=== PATIENT | male | born 1955 | race Caucasian/White ===

== ENCOUNTER 2017-06-20 07:16 | Day surgery (SDC) | payer BC, OTHER ==
[~2017-06-20 07:16] MED LIST: Lactated Ringers 1,000 ML IV SCH; Sodium Chloride 0.9% 5 ML Syringe FLUSH PRN
[2017-06-20] MEDS ORDERED: ceFAZolin 1 GM Vial ONE ×3 (08:10→08:45)
[2017-06-20] MEDS ORDERED: Lidocaine 1% with EPINEPHrine 1:100,000 20 ML MDV ONE (08:11)
[2017-06-20] MEDS ORDERED: fentaNYL 250 MCG/5 ML SDV ONE (08:13)
[2017-06-20] MEDS ORDERED: Midazolam 1 MG/ML 2 ML SDV ONE (08:13)
[2017-06-20] MEDS ORDERED: Propofol 200 MG/20 ML SDV ONE (08:13)
[2017-06-20] MEDS ORDERED: Lactated Ringers 1,000 ML ONE (08:13)
[2017-06-20] MEDS ORDERED: Dexamethasone 4 MG/ML SDV ONE (08:13)
[2017-06-20] MEDS ORDERED: Neostigmine Methylsulfate 10 MG/10 ML MDV IV ONE (08:19)
[2017-06-20] MEDS ORDERED: Dexamethasone 4 MG/ML SDV IV ONE (08:19)
[2017-06-20] MEDS ORDERED: Ondansetron 4 MG/2 ML SDV IV ONE (08:19)
[2017-06-20] MEDS ORDERED: fentaNYL 250 MCG/5 ML SDV IV ONE (08:19)
[2017-06-20] MEDS ORDERED: Propofol 200 MG/20 ML SDV IV ONE (08:19)
[2017-06-20] MEDS ORDERED: Midazolam 1 MG/ML 2 ML SDV IV ONE (08:19)
[2017-06-20] MEDS ORDERED: Succinylcholine 200 MG/10 ML MDV IV ONE (08:19)
[2017-06-20] MEDS ORDERED: Rocuronium 50 MG/5 ML Vial IV ONE (08:19)
[2017-06-20] MEDS ORDERED: ceFAZolin 1 GM Vial IV ONE (08:19)
[2017-06-20] MEDS ORDERED: Glycopyrrolate 0.2 MG/ML 5 ML MDV IV ONE (08:19)
[2017-06-20] MEDS ORDERED: Lidocaine 1% with EPINEPHrine 1:100,000 20 ML MDV INFILT ONE (08:45)
[2017-06-20] MEDS ORDERED: Sodium Chloride 0.9% 20 ML SDV ONE (08:45)
[2017-06-20] MEDS ORDERED: Albuterol/Ipratropium 3.0-0.5 MG/3 ML Neb Soln NEB ONE (09:15)
[2017-06-20] MEDS ORDERED: Ipratropium 0.02% 0.5 MG/2.5 ML Neb Soln ONE (09:16)
[2017-06-20] MEDS ORDERED: Albuterol 0.083% 2.5 MG/3 ML Neb Soln ONE (09:16)
--- NOTE | 2017-06-20 09:26 | PCM.PRNOTE ---
- Free Text/Narrative Note: INFORMED CONSENT: The patient is here today for elective left inguinal herniorrhaphy. The operative procedure, anesthesia and risks of both are completely explained to the patient. These include infection, pain, bleeding, recurrence, numbness and other unknown complications. The patient wished to proceed. The patient was kept in the supine position and the left inguinal area was thoroughly prepped and draped in the usual fashion. An incision was made over the left inguinal area, parallel to the inguinal ligament. The skin incision was deepened through the subcutaneous tissue, deep fascia and the external oblique was opened along the line of the skin incision. The cord structures were identified and kept out of harms way. We also identified the ilioinguinal nerve and the inguinal branch of the genitofemoral nerve. These two structures were kept out of harms way as well. We then dissected the medial portion of the cord and there was a fairly significant hernial sac which was opened. The contents were mostly omental tissue that was pushed back into the abdominal cavity. A high ligation of the sac was performed with 0 silk sutures. The excess sac was excised and sent away for histology. Palpation of the medial portion of the floor indicated a defect. A Marlex mesh was then cut down to size and placed to fortify the defect of the floor and the direct portion of the hernia. The mesh was attached to the conjoined tendon superiorly, Miki's ligament medially and the reflected portion of the inguinal ligament inferiorly. The wound was irrigated, small bleeders were cauterized and the external oblique was closed over the cord structures using running 0 silk sutures. The subcutaneous tissue was closed with 0 Polysorb suture and the skin was closed using 4.0 Polysorb suture. A Sterile pressure dressing was applied, the patient tolerated the procedure well and there were no operative complications. Blood loss was negligible. Sponge, needle and instrument count was correct. The patient was transferred to the recovery room in excellent condition.
[2017-06-20] MEDS ORDERED: Ketorolac 30 MG/ML SDV IVPUSH ONE (13:19)
== END 2017-06-20 14:35 | disposition home or self-care (01) ==
LOC: KA.SDS 07:16
PROVIDERS: ATTEND Family Medicine
DX: K40.90 Unilateral inguinal hernia, without obstruction or gangrene, not specified as recurrent (principal); F17.200 Nicotine dependence, unspecified, uncomplicated; Z88.0 Allergy status to penicillin
CPT/HCPCS: C1781; J0330; J0690; J1100; J1885; J2250; J2405; J2704; J2710; J3010; J3490; J7120

== ENCOUNTER 2019-11-24 15:58 | Emergency (ER) | payer BC ==
[2019-11-24] MEDS ORDERED: Sodium Chloride 0.9% 10 ML Syringe FLUSH PRN (16:11)
--- NOTE | 2019-11-24 16:12 | EDM.PDOC ---
ED HPI GENERAL MEDICAL PROBLEM - General Chief Complaint: Abdominal Pain Stated Complaint: MID UPPER ABDOMINAL PAIN Time Seen by Provider: 11/24/19 16:12 Source of Information: Reports: Patient - History of Present Illness INITIAL COMMENTS - FREE TEXT/NARRATIVE: 64 YO WM PRESENTS TO ER COMPLAINING OF 3 DAYS OF EPIGASTRIC DISCOMFORT. 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 PT REPORTS HE BECAME OVERHEATED AND WAS DIAPHORETIC WITH NAUSEA BUT SYMPTOMS LASTED FOR ABOUT 10 MINUTES AND RESOLVED. PT REPORTS IT FEELS LIKE INDIGESTION. PT REPORTS A FEW MORE EPISODES SINCE SUNDAY WITH THE LAST EPISODE BEING TODAY AND LASTING LONGER WITH ASSOCIATED NAUSEA, DIAPHORESIS AND MILD SHORTNESS OF BREATH. PT DENIES PMH AND DENIES CURRENT MEDICATION USE. PT DENIES FEVER/CHILLS, NO BACK PAIN OR DIZZINESS. Onset Date: 11/21/19 Duration: Day(s): (3) Location: Reports: Chest, Abdomen Quality: Reports: Dull Severity: Mild Improves with: Reports: None Worsens with: Reports: None Associated Symptoms: Reports: Chest Pain, Nausea/Vomiting, Shortness of Breath - Related Data Allergies Allergy/AdvReac Type Severity Reaction Status Date / Time Penicillins Allergy Rash Verified 11/24/19 16:25 Home Meds: Home Meds Acetaminophen 500 mg PO Q4H PRN 06/19/17 [History] Past Medical History Gastrointestinal History: Reports: Other (See Below) Other Gastrointestinal History: Left inguinal hernia, right inguinal hernia repaired in 2010 Musculoskeletal History: Reports: Back Pain, Chronic, Fracture, Other (See Below) Other Musculoskeletal History: collar bone fx Psychiatric History: Reports: Addiction, Other (See Below) Other Psychiatric History: alcohol addiction - Infectious Disease History Infectious Disease History: Reports: Chicken Pox ED ROS GENERAL - Review of Systems Review Of Systems: See Below Constitutional: Reports: No Symptoms HEENT: Reports: No Symptoms Respiratory: Reports: No Symptoms Cardiovascular: Reports: Chest Pain Endocrine: Reports: No Symptoms GI/Abdominal: Reports: Abdominal Pain, Nausea : Reports: No Symptoms Musculoskeletal: Reports: No Symptoms Skin: Reports: No Symptoms Neurological: Reports: No Symptoms Psychiatric: Reports: No Symptoms Hematologic/Lymphatic: Reports: No Symptoms Immunologic: Reports: No Symptoms ED EXAM, GENERAL - Physical Exam Exam: See Below Exam Limited By: No Limitations General Appearance: Alert, WD/WN, No Apparent Distress Head: Atraumatic Neck: Normal Inspection, Supple, Non-Tender, Full Range of Motion Respiratory/Chest: No Respiratory Distress, Lungs Clear, Normal Breath Sounds, No Accessory Muscle Use, Chest Non-Tender Cardiovascular: Normal Peripheral Pulses, Regular Rate, Rhythm, No Edema, No Gallop, No JVD, No Murmur, No Rub GI/Abdominal: Normal Bowel Sounds, Soft, No Organomegaly, No Distention, No Abnormal Bruit, No Mass, Tender Back Exam: Normal Inspection, Full Range of Motion, NT Extremities: Normal Inspection, Normal Range of Motion, Non-Tender, Normal Capillary Refill, No Pedal Edema Neurological: Alert, Oriented, CN II-XII Intact, Normal Cognition, Normal Gait, Normal Reflexes, No Motor/Sensory Deficits Psychiatric: Normal Affect, Normal Mood Skin Exam: Warm, Dry, Intact, Normal Color, No Rash Lymphatic: No Adenopathy EKG INTERPRETATION EKG Date: 11/24/19 Time: 16:10 Rhythm: NSR Rate (Beats/Min): 70 Cassatt: Normal P-Wave: Present QRS: Normal ST-T: Normal QT: Normal Comparison: NA - No Prior EKG Course - Vital Signs Last Recorded V/S: Last Vital Signs Temp 36.2 C 11/24/19 16:05 Pulse 76 11/24/19 17:45 Resp 23 H 11/24/19 17:45 BP 123/68 11/24/19 17:45 Pulse Ox 97 11/24/19 17:45 - Orders/Labs/Meds Orders: Active Orders 24 hr Category Date Time Status EKG Documentation Completion [RC] ASDIRECTED Care 11/24/19 16:11 Active Peripheral IV Care [RC] . DIRECTED Care 11/24/19 16:11 Active Sodium Chloride 0.9% [Saline Flush] Med 11/24/19 16:11 Active 10 ml FLUSH Q8HR PRN Peripheral IV Insertion Adult [OM.PC] Routine Oth 11/24/19 16:11 Ordered EKG 12 Lead [EK] Stat Ther 11/24/19 16:11 Ordered Medication Orders Sodium Chloride (Saline Flush) 10 ml FLUSH Q8HR PRN PRN Reason: keep vein open Labs: Laboratory Tests 11/24/19 11/24/19 Range/Units 16:15 16:15 WBC 15.50 H (5.00-10.00) 10^3/uL RBC 4.86 (4.50-6.00) 10^6/uL Hgb 14.2 (13.0-17.0) g/dL Hct 41.1 (40.0-52.0) % MCV 84.6 (82.0-92.0) fL MCH 29.2 (27.0-31.0) pg MCHC 34.5 (32.0-36.0) g/dL RDW 13.9 (11.5-14.5) % Plt Count 272 (150-400) 10^3/uL MPV 8.4 (7.4-10.4) fL Immature Gran % (Auto) 0.2 (0.0-5.0) % Neut % (Auto) 77.3 H (50.0-70.0) % Lymph % (Auto) 15.4 L (20.0-40.0) % Hinds % (Auto) 6.3 (2.0-8.0) % Eos % (Auto) 0.6 L (1.0-3.0) % Baso % (Auto) 0.2 (0.0-1.0) % Neut # (Auto) 11.98 H (2.50-7.00) 10^3/uL Lymph # (Auto) 2.39 (1.00-4.00) 10^3/uL Hinds # (Auto) 0.98 H (0.10-0.80) 10^3/uL Eos # (Auto) 0.09 L (0.10-0.30) 10^3/uL Baso # (Auto) 0.03 (0.00-0.10) 10^3/uL Immature Gran # (Auto) 0.03 (0.00-0.50) 10^3/uL Sodium 131 L (136-145) mmol/L Potassium 3.3 (3.3-5.3) mmol/L Chloride 94 L (98-115) mmol/L Carbon Dioxide 23.6 (21.0-32.0) mmol/L Anion Gap 16.7 H (5-15) mmol/L BUN 15 (6-25) mg/dL Creatinine 0.68 (0.51-1.17) mg/dL Est Cr Clr Drug Dosing 110.57 mL/min Estimated GFR (MDRD) > 60 mL/min Glucose 102 H (75 - 99) mg/dL Calcium 8.7 (8.7-10.3) mg/dL Total Bilirubin 0.4 (0.2-1.0) mg/dL AST 15 (15-37) U/L ALT 20 (12-78) U/L Alkaline Phosphatase 107 (46-116) IU/L Creatine Kinase 55 (26-276) U/L CK-MB (CK-2) 1.70 (0.00-4.30) ng/mL Troponin I 0.04 (0.00-0.070) ng/mL Total Protein 6.9 (6.4-8.2) g/dL Albumin 3.54 (3.00-4.80) g/dL Lipase 113 (73-393) U/L Meds: Medications Generic Name Dose Route Start Last Admin Trade Name Freq PRN Reason Stop Dose Admin Sodium Chloride 10 ml 11/24/19 16:11 Saline Flush FLUSH Q8HR PRN keep vein open Discontinued Medications Generic Name Dose Route Start Last Admin Trade Name Freq PRN Reason Stop Dose Admin Sodium Chloride 1,000 mls @ 999 mls/hr 11/24/19 16:19 11/24/19 16:33 Normal Saline IV 11/24/19 17:19 999 mls/hr .BOLUS ONE Administration - Radiology Interpretation Free Text/Narrative:: CXR-NAD - Re-Assessments/Exams Free Text/Narrative Re-Assessment/Exam: 11/24/19 17:15 PT DENIES ABDOMINAL PAIN/CHEST PAIN CURRENTLY. PT DOES NOT WANT TO STAY IN HOSPITAL AND WANTS TO BE DISCHARGED FOR OUTPATIENT EVALUATION AND TREATMENT. PT UNDERSTANDS RISK OF DETENTION DISABILITY OR POSSIBILITIES WITHOUT A MORE DEFINITIVE DIAGNOSIS. Departure - Departure Time of Disposition: 17:19 Disposition: Against Medical Advice 07 Condition: Fair Clinical Impression: Epigastric pain, Nonspecific chest pain, Tobacco use - Discharge Information Instructions: Abdominal Pain, Adult, Nonspecific Chest Pain, Adult, Steps to Quit Smoking Referrals: Maria Alejandra Parada PA-C [Primary Care Provider] - Forms: ED Department Discharge, Refusal of Care AMA Additional Instructions: 1. AMA- CONCERNS FOR CARDIAC ISCHEMIA. RECOMMENDED OBSERVATION IN THE HOSPITAL FOR FURTHER EVALUATION AND TREATMENT 2. FOLLOW UP WITH MARIA ALEJANDRA PARADA IN AM SCHEDULED- RECOMMENDING CARDIAC STRESS TEST AND ECHOCARDIOGRAM 3. RETURN TO ER FOR RETURNING OR WORSENING SYMPTOMS Sepsis Event Note (ED) - Focused Exam Vital Signs: Vital Signs Temp Pulse Resp BP Pulse Ox 11/24/19 17:45 76 23 H 123/68 97 11/24/19 17:30 63 18 117/92 H 98 11/24/19 17:00 64 18 112/64 97 11/24/19 16:45 62 16 115/59 L 96 11/24/19 16:30 64 20 109/59 L 98 11/24/19 16:15 77 15 90/60 94 L 11/24/19 16:05 36.2 C 72 20 118/71 93 L - My Orders Last 24 Hours: My Active Orders 11/24/19 16:11 EKG Documentation Completion [RC] ASDIRECTED Peripheral IV Care [RC] . DIRECTED Sodium Chloride 0.9% [Saline Flush] 10 ml FLUSH Q8HR PRN Peripheral IV Insertion Adult [OM.PC] Routine EKG 12 Lead [EK] Stat - Assessment/Plan Last 24 Hours: My Active Orders 11/24/19 16:11 EKG Documentation Completion [RC] ASDIRECTED Peripheral IV Care [RC] . DIRECTED Sodium Chloride 0.9% [Saline Flush] 10 ml FLUSH Q8HR PRN Peripheral IV Insertion Adult [OM.PC] Routine EKG 12 Lead [EK] Stat Assessment:: 1. EPIGASTRIC ABDOMINAL PAIN 2. NONSPECIFIC CHEST PAIN Plan: 1. AMA- CONCERNS FOR CARDIAC ISCHEMIA. RECOMMENDED OBSERVATION IN THE HOSPITAL FOR FURTHER EVALUATION AND TREATMENT 2. FOLLOW UP WITH MARIA ALEJANDRA PARADA IN AM SCHEDULED- RECOMMENDING CARDIAC STRESS TEST AND ECHOCARDIOGRAM 3. RETURN TO ER FOR RETURNING OR WORSENING SYMPTOMS
[2019-11-24] MEDS: Sodium Chloride 0.9% 1,000 ML IV ONE (16:33)
[2019-11-24 16:48] LABS: ANION GAP 16.7 mmol/L (5-15); CHLORIDE,CL 94 mmol/L (98-115); SODIUM,NA 131 mmol/L (136-145)
--- NOTE | 2019-11-24 16:48 | CR ---
[id number] RAD/RAD Chest PA And Lateral EXAM: RAD Chest PA And Lateral INDICATION: PAIN. COMPARISON: None. DISCUSSION: Cardiomediastinal silhouette is normal in size and contour. Bilateral symmetric lung hyperinflation. Findings nonspecific, commonly seen as sequela of chronic obstructive pulmonary disease. No infiltrate, effusion, pneumothorax, or edema. Impression: As above. Bladimir Paulino MD 11/24/19 [id number] Thank you for allowing us to participate in the care of your patient.
== END 2019-11-24 17:45 | disposition left against medical advice (07) ==
LOC: KA.ED 15:58
DX: R10.13 Epigastric pain (principal); R07.9 Chest pain, unspecified; Z72.0 Tobacco use; Z88.0 Allergy status to penicillin
CPT/HCPCS: 71046; 80053; 82550; 82553; 83690; 84484; 85025; 93005; 96360; 99284; 99285-25; J7030

== ENCOUNTER 2024-02-02 06:14 | Inpatient (IN) | payer MEDICARE ==
[2024-02-02 06:37] LABS: BASOPHILS ABSOLUTE AUTO 0.03 10^3/uL (0.00-0.10); BASOPHILS PERCENT AUTO 0.2 % (0.0-1.0); EOSINOPHILS PERCENT AUTO 0.5 % (1.0-3.0); HEMATOCRIT 44.4 % (40.0-52.0); IMMATURE GRAN ABSOLUTE AUTO 0.03 10^3/uL (0.00-0.50); IMMATURE GRAN PERCENT AUTO 0.2 % (0.0-5.0); LYMPHOCYTES ABSOLUTE AUTO 3.47 10^3/uL (1.00-4.00); LYMPHOCYTES PERCENT AUTO 17.6 % (20.0-40.0); MEAN CORPUSCULAR HEMOGLOBIN 29.7 pg (27.0-31.0); MEAN CORPUSCULAR HGB CONC 33.8 g/dL (32.0-36.0); MEAN CORPUSCULAR VOLUME 87.9 fL (82.0-92.0); MEAN PLATELET VOLUME 8.7 fL (7.4-10.4); MONOCYTES ABSOLUTE AUTO 1.12 10^3/uL (0.10-0.80); MONOCYTES PERCENT AUTO 5.7 % (2.0-8.0); NEUTROPHILS ABSOLUTE AUTO 14.95 10^3/uL (2.50-7.00); NEUTROPHILS PERCENT AUTO 75.8 % (50.0-70.0); PLATELET COUNT,PLT 264 10^3/uL (150-400); RED BLOOD CELL COUNT 5.05 10^6/uL (4.50-6.00); RED CELL DISTRIBUTION WIDTH 14.5 % (11.5-14.5)
[2024-02-02] MEDS: Albuterol/Ipratropium 3.0-0.5 MG/3 ML Neb Soln NEB ONE ×2 (06:39→07:12)
[2024-02-02] MEDS: methylPREDNISolone Sodium Succinate 125 MG/2 ML SDV IVPUSH ONE (06:39)
[2024-02-02] MEDS: Sodium Chloride 0.9% 10 ML Syringe FLUSH PRN (06:45)
[2024-02-02] MEDS: Sodium Chloride 0.9% 1,000 ML IV ONE (06:46)
[2024-02-02 06:51] LABS: ALANINE AMINOTRANSFERASE,ALT 21 U/L (14-63); ALBUMIN 3.25 g/dL (3.40-5.00); ALKALINE PHOSPHATASE 119 U/L (46-116); ANION GAP 12.3 mmol/L (5-15); ASPARTATE AMNIOTRANSFERASE,AST 15 U/L (15-37); BILIRUBIN TOTAL 0.8 mg/dL (0.2-1.0); BLOOD UREA NITROGEN,BUN 9 mg/dL (7-18); CALCIUM 8.9 mg/dL (8.7-10.3); CARBON DIOXIDE,CO2 30.3 mmol/L (21.0-32.0); CHLORIDE,CL 96 mmol/L (98-107); CREATININE 0.64 mg/dL (0.51-1.17); EST CRCL DRUG DOSING (CG) 106.35 mL/min; GLUCOSE RANDOM 93 mg/dL (70-140); POTASSIUM,K 3.6 mmol/L (3.5-5.1); PROTEIN TOTAL,TP 6.8 g/dL (6.4-8.2); SODIUM,NA 135 mmol/L (136-145)
[2024-02-02 06:54] LABS: ESTIMATED GFR 104 mL/min (>=60)
[2024-02-02 07:08] LABS: LACTIC ACID 0.6 mmol/L (0.4-2.0)
[2024-02-02] MEDS: Pantoprazole 40 MG Tab.CR PO ONE (07:45)
[2024-02-02] MEDS ORDERED: Albuterol/Ipratropium 3.0-0.5 MG/3 ML Neb Soln NEB PRN (08:46)
[2024-02-02] MEDS ORDERED: Ondansetron 4 MG/2 ML SDV IV PRN (08:46)
[2024-02-02] MEDS ORDERED: Acetaminophen 325 MG Tab PO PRN (08:46)
[2024-02-02] MEDS ORDERED: Melatonin 3 MG Tab PO PRN (08:46)
[2024-02-02] MEDS: Sodium Chloride 0.9% 100 ML IV SCH (09:38)
[2024-02-02] MEDS: Azithromycin 500 MG in Sodium Chloride 0.9% 250 ML IV SCH (09:38)
[2024-02-02] MEDS: Nicotine 21 MG/24 Hr Patch TRDERM SCH (10:08)
[2024-02-02] MEDS: Albuterol/Ipratropium 3.0-0.5 MG/3 ML Neb Soln NEB SCH (11:04)
[2024-02-02] MEDS: methylPREDNISolone Sodium Succinate 40 MG/1 ML SDV IVPUSH SCH (14:56)
[2024-02-02] MEDS: INDOMETHACIN 25 MG PO SCH (17:43)
[2024-02-03] MEDS: Pantoprazole 40 MG Tab.CR PO SCH (05:33)
[2024-02-03 07:26] LABS: BASOPHILS ABSOLUTE AUTO 0.02 10^3/uL (0.00-0.10); BASOPHILS PERCENT AUTO 0.1 % (0.0-1.0); HEMATOCRIT 41.6 % (40.0-52.0); HEMOGLOBIN 13.9 g/dL (13.0-17.0); IMMATURE GRAN ABSOLUTE AUTO 0.08 10^3/uL (0.00-0.50); IMMATURE GRAN PERCENT AUTO 0.3 % (0.0-5.0); LYMPHOCYTES ABSOLUTE AUTO 0.92 10^3/uL (1.00-4.00); LYMPHOCYTES PERCENT AUTO 3.8 % (20.0-40.0); MEAN CORPUSCULAR HEMOGLOBIN 29.5 pg (27.0-31.0); MEAN CORPUSCULAR HGB CONC 33.4 g/dL (32.0-36.0); MEAN CORPUSCULAR VOLUME 88.3 fL (82.0-92.0); MEAN PLATELET VOLUME 8.7 fL (7.4-10.4); MONOCYTES ABSOLUTE AUTO 1.15 10^3/uL (0.10-0.80); MONOCYTES PERCENT AUTO 4.8 % (2.0-8.0); NEUTROPHILS ABSOLUTE AUTO 21.89 10^3/uL (2.50-7.00); PLATELET COUNT,PLT 256 10^3/uL (150-400); RED BLOOD CELL COUNT 4.71 10^6/uL (4.50-6.00); RED CELL DISTRIBUTION WIDTH 14.5 % (11.5-14.5); WHITE BLOOD CELL COUNT,WBC 24.06 10^3/uL (5.00-10.00)
[2024-02-03 07:43] LABS: ALBUMIN 2.89 g/dL (3.40-5.00); ANION GAP 13.6 mmol/L (5-15); BILIRUBIN TOTAL 0.4 mg/dL (0.2-1.0); CALCIUM 8.9 mg/dL (8.7-10.3); CARBON DIOXIDE,CO2 28.5 mmol/L (21.0-32.0); CREATININE 0.57 mg/dL (0.51-1.17); EST CRCL DRUG DOSING (CG) 115.05 mL/min; POTASSIUM,K 4.1 mmol/L (3.5-5.1); PROTEIN TOTAL,TP 6.3 g/dL (6.4-8.2)
[2024-02-03] MEDS: Loratadine 10 MG Tab PO SCH (11:16)
[2024-02-03] MEDS: Fluticasone NASAL Spray 16 GM Bottle NASBOTH SCH (11:16)
[2024-02-03] MEDS: guaiFENesin 600 MG Tab.ER PO SCH (11:16)
[2024-02-03] MEDS: Enoxaparin 40 MG/0.4 ML Syringe SUBCUT SCH (17:49)
[2024-02-04 07:47] LABS: ALBUMIN 2.82 g/dL (3.40-5.00); ANION GAP 9.5 mmol/L (5-15); BILIRUBIN TOTAL 0.4 mg/dL (0.2-1.0); CALCIUM 8.7 mg/dL (8.7-10.3); CARBON DIOXIDE,CO2 32.6 mmol/L (21.0-32.0); CREATININE 0.72 mg/dL (0.51-1.17); EST CRCL DRUG DOSING (CG) 91.08 mL/min; POTASSIUM,K 4.1 mmol/L (3.5-5.1); PROTEIN TOTAL,TP 6.2 g/dL (6.4-8.2)
[2024-02-04 08:07] LABS: BASOPHILS ABSOLUTE AUTO 0.02 10^3/uL (0.00-0.10); BASOPHILS PERCENT AUTO 0.1 % (0.0-1.0); EOSINOPHILS ABSOLUTE AUTO 0.03 10^3/uL (0.10-0.30); EOSINOPHILS PERCENT AUTO 0.2 % (1.0-3.0); HEMATOCRIT 41.5 % (40.0-52.0); HEMOGLOBIN 13.8 g/dL (13.0-17.0); IMMATURE GRAN ABSOLUTE AUTO 0.05 10^3/uL (0.00-0.50); IMMATURE GRAN PERCENT AUTO 0.3 % (0.0-5.0); LYMPHOCYTES ABSOLUTE AUTO 2.62 10^3/uL (1.00-4.00); LYMPHOCYTES PERCENT AUTO 16.2 % (20.0-40.0); MEAN CORPUSCULAR HGB CONC 33.3 g/dL (32.0-36.0); MEAN CORPUSCULAR VOLUME 90.2 fL (82.0-92.0); MEAN PLATELET VOLUME 8.9 fL (7.4-10.4); MONOCYTES ABSOLUTE AUTO 0.94 10^3/uL (0.10-0.80); MONOCYTES PERCENT AUTO 5.8 % (2.0-8.0); NEUTROPHILS ABSOLUTE AUTO 12.55 10^3/uL (2.50-7.00); NEUTROPHILS PERCENT AUTO 77.4 % (50.0-70.0); PLATELET COUNT,PLT 258 10^3/uL (150-400); RED CELL DISTRIBUTION WIDTH 14.6 % (11.5-14.5); WHITE BLOOD CELL COUNT,WBC 16.21 10^3/uL (5.00-10.00)
[2024-02-04] MEDS: methylPREDNISolone Sodium Succinate 40 MG/1 ML SDV IVPUSH SCH (08:59)
== END 2024-02-04 14:01 | disposition home or self-care (01) | DRG 189 ==
LOC: KA.ED 06:14 → KA.MS 07:35
PROVIDERS: ADMIT Internal Medicine; ATTEND Internal Medicine
DX: J96.01 Acute respiratory failure with hypoxia (principal); R09.02 Hypoxemia; J44.1 Chronic obstructive pulmonary disease with (acute) exacerbation; D72.829 Elevated white blood cell count, unspecified; G89.29 Other chronic pain; M54.9 Dorsalgia, unspecified; F17.210 Nicotine dependence, cigarettes, uncomplicated; Z88.0 Allergy status to penicillin; Z88.8 Allergy status to other drugs, medicaments and biological substances; Z79.52 Long term (current) use of systemic steroids; Z79.899 Other long term (current) drug therapy
CPT/HCPCS: 36415; 71045; 80053; 83605; 84484; 85025; 93005; 93010; 94640; 96374; 99223-GT; 99232-GT; 99239-GT; 99284; 99285-25; A9270-GY; J0456; J1650; J2919; J3490; J7030; J7050; J7620-GY; Q3014

== ENCOUNTER 2025-01-17 21:09 | Observation (INO) | payer MEDICARE ==
[2025-01-17 21:56] LABS: BASOPHILS ABSOLUTE AUTO 0.04 10^3/uL (0.00-0.10); BASOPHILS PERCENT AUTO 0.3 % (0.0-1.0); EOSINOPHILS ABSOLUTE AUTO 0.44 10^3/uL (0.10-0.30); EOSINOPHILS PERCENT AUTO 3.6 % (1.0-3.0); IMMATURE GRAN ABSOLUTE AUTO 0.03 10^3/uL (0.00-0.04); IMMATURE GRAN PERCENT AUTO 0.2 % (0.0-0.4); LYMPHOCYTES ABSOLUTE AUTO 2.87 10^3/uL (1.00-4.00); LYMPHOCYTES PERCENT AUTO 23.2 % (20.0-40.0); MEAN PLATELET VOLUME 8.6 fL (7.4-10.4); MONOCYTES ABSOLUTE AUTO 0.74 10^3/uL (0.10-0.80); MONOCYTES PERCENT AUTO 6.0 % (2.0-8.0); NEUTROPHILS ABSOLUTE AUTO 8.23 10^3/uL (2.50-7.00); NEUTROPHILS PERCENT AUTO 66.7 % (50.0-70.0); PLATELET COUNT,PLT 242 10^3/uL (150-400); RED BLOOD CELL COUNT 4.10 10^6/uL (4.50-6.00); RED CELL DISTRIBUTION WIDTH 14.7 % (11.5-14.5); WHITE BLOOD CELL COUNT,WBC 12.35 10^3/uL (5.00-10.00)
[2025-01-17] MEDS: Sodium Chloride 0.9% 10 ML Syringe FLUSH PRN (22:00)
[2025-01-17] MEDS: Ketorolac 30 MG/ML SDV IVPUSH ONE (22:00)
[2025-01-17 22:10] LABS: ALANINE AMINOTRANSFERASE,ALT 15.0 U/L (14-63); ASPARTATE AMNIOTRANSFERASE,AST 13.0 U/L (15-37); BILIRUBIN TOTAL 0.2 mg/dL (0.2-1.0); BLOOD UREA NITROGEN,BUN 9.0 mg/dL (7-18); CARBON DIOXIDE,CO2 26.5 mmol/L (21.0-32.0); CHLORIDE,CL 103.0 mmol/L (98-107); CREATININE 0.64 mg/dL (0.51-1.17); EST CRCL DRUG DOSING (CG) 105.31 mL/min; GLUCOSE RANDOM 90.0 mg/dL (70-140); POTASSIUM,K 3.7 mmol/L (3.5-5.1); PROTEIN TOTAL,TP 5.7 g/dL (6.4-8.2); SODIUM,NA 136.0 mmol/L (136-145)
[2025-01-17 22:11] LABS: ESTIMATED GFR 103.0 mL/min (>=60)
[2025-01-17] MEDS: methylPREDNISolone Sodium Succinate 125 MG/2 ML SDV IVPUSH ONE (22:13)
[2025-01-17] MEDS: LORazepam 2 MG/ML SDV IVPUSH ONE (22:52)
[2025-01-18] MEDS: fentaNYL 100 MCG/2 ML SDV IVPUSH ONE (00:01)
[2025-01-18] MEDS ORDERED: Ondansetron 4 MG/2 ML SDV IV PRN (06:33)
[2025-01-18] MEDS ORDERED: Naloxone 0.4 MG/ML SDV IVPUSH PRN (06:36)
[2025-01-18] MEDS: Cholecalciferol (Vitamin D3) 25 MCG Tab PO SCH (08:41)
[2025-01-18] MEDS: Cyanocobalamin (Vitamin B12) 500 MCG Tab PO SCH (08:41)
[2025-01-18] MEDS: Tiotropium BR/Olodaterol HCL 4 GM Inhalation Spray 2.5mcg/1 dose; 10 doses INH SCH (08:47)
[2025-01-18] MEDS: Mometasone Furoate Powder 220 MCG/Puff 14 Dose Inhaler INH SCH (08:47)
[2025-01-18] MEDS ORDERED: Non-Formulary Medication 1 Each (Cholecalciferol (Vitamin D3) [Vitamin D3] 10 MCG Tablet) PO SCH (09:00)
[2025-01-18] MEDS ORDERED: Non-Formulary Medication 1 Each (Cyanocobalamin (Vitamin B-12) [Vitamin B-12] 100 MCG Tabl PO SCH (09:00)
[2025-01-18] MEDS ORDERED: Non-Formulary Medication 1 Each (Iron,Carbonyl/Ascorbic Acid [Vitron-C Tablet] 1 EACH Tabl PO SCH (21:00)
== END 2025-01-18 16:57 ==
LOC: KA.ED 21:09 → KA.MS 01-18 05:18
PROVIDERS: ADMIT Internal Medicine; ATTEND Internal Medicine
DX: R33.8 Other retention of urine (principal); M54.50 Low back pain, unspecified; J44.9 Chronic obstructive pulmonary disease, unspecified; Z88.0 Allergy status to penicillin; Z88.8 Allergy status to other drugs, medicaments and biological substances
CPT/HCPCS: 36415; 51702; 72100; 72131; 72170; 74176; 80053; 85025; 96374; 96375; 99236-GT; 99284; 99285-25; A9270-GY; G0378; J1171; J1885; J2060; J2270; J2919; J3010; J7030; Q3014